=== PATIENT | male | born 1960 | race Caucasian/White ===

== ENCOUNTER 2021-09-26 23:49 | Emergency (ER) | payer OTHER ==
[2021-09-27 00:08] VITALS: BP 185/95; PULSE 80
[2021-09-27] MEDS ORDERED: HYDROmorphone 1 MG/ML Syringe IVPUSH STA (00:39)
[2021-09-27] MEDS ORDERED: Ondansetron 4 MG/2 ML SDV IVPUSH ONE (00:39)
[2021-09-27] MEDS ORDERED: Sodium Chloride 0.9% 1,000 ML IV SCH (00:45)
[2021-09-27] MEDS ORDERED: Tamsulosin 0.4 MG Cap.ER PO ONE (02:24)
== END 2021-09-27 03:10 | disposition home or self-care (01) ==
LOC: JD.ED 23:49
DX: N13.2 Hydronephrosis with renal and ureteral calculous obstruction (principal); E78.00 Pure hypercholesterolemia, unspecified; I10 Essential (primary) hypertension; Z88.5 Allergy status to narcotic agent; Z79.82 Long term (current) use of aspirin; Z79.899 Other long term (current) drug therapy; Z87.891 Personal history of nicotine dependence
CPT/HCPCS: 36415; 74177; 80053; 81001; 85025; 96374; 96375; 99284; A9270; J1170; J2405; J7030; 99283